=== PATIENT | male | born 1960 | race Caucasian/White ===

== ENCOUNTER 2017-11-01 13:54 | Emergency (ER) | payer MEDICARE ==
[2017-11-01] MEDS ORDERED: predniSONE 20 MG TABLET PO ONE (14:43)
[2017-11-01] MEDS ORDERED: predniSONE 20 MG TABLET ONE (14:47)
--- NOTE | 2017-11-01 14:50 | ERNOTE ---
Head Injury HPI - General Injury to: other - neck pain Time Seen by Provider: 11/01/17 14:18 Source: patient Exam Limitations: no limitations - Immun/Allergies/Home Medications Immunization: IMMUNIZATION HX Immunizations Up to Date Yes History of Influenza Vaccine No Hx Pneumococcal Vaccination No Allergies/Adverse Reactions: Allergies Allergy/AdvReac Type Severity Reaction Status Date / Time iodine Allergy Intermediate Verified 11/01/17 14:05 Home Medications: HOME MEDICATIONS Baclofen 20 mg PO TID 03/25/13 [Last Taken Unknown] Docusate Sodium [Colace] 100 mg PO HS 03/25/13 [Last Taken Unknown] Milnacipran HCl [Savella] 30 mg PO BID 03/25/13 [Last Taken Unknown] Nabumetone 1,000 mg PO DAILY 03/25/13 [Last Taken Unknown] Omeprazole 20 mg PO DAILY 03/25/13 [Last Taken Unknown] Oxycodone HCl/Acetaminophen [Percocet 10-325 mg Tablet] 1 each PO Q4HWA PRN 03/02 [Last Taken Unknown] Pregabalin [Lyrica] 300 mg PO BID 03/25/13 [Last Taken Unknown] Tapentadol HCl [Nucynta ER] 200 mg PO BID 03/25/13 [Last Taken Unknown] Zolpidem Tartrate [Ambien] 10 mg PO HS 03/25/13 [Last Taken Unknown] Carisoprodol [Soma] 350 mg PO QID #30 tablet 11/01/17 [Last Taken Unknown] - History of Present Illness Narrative: Patient has a long-standing history of neck pain, and was diagnosed with spinal stenosis years ago. He has received steroid injections in the neck in the past and they did help, although that was 4 years ago. Patient is recently seen a spine surgeon in [place] and it was suggested that a laminectomy might be the best course of treatment. Patient is struggling with a wants to have surgery are not, and he did not want to wait until his doctor's appointment tomorrow. Occurred: other - chronic neck pain and muscle spasm Severity: moderate Head Injury Location: other - primarily right trapezius muscle and neck Method of Injury: Reports: no apparent injury Loss of Consciousness: Reports: no loss of consciousness Associated Symptoms: Reports: neck pain Review of Systems - Review of Systems Constitutional: Present: See HPI EYE: Present: no symptoms reported ENT: Present: no symptoms reported Respiratory: Present: no symptoms reported Cardiology: Present: no symptoms reported Gastrointestinal/Abdominal: Present: no symptoms reported Genitourinary: Present: no symptoms reported Musculoskeletal: Present: See HPI Skin: Present: no symptoms reported Neurological: Present: no symptoms reported Endocrine: Present: no symptoms reported Hematologic/Lymphatic: Present: no symptoms reported Psych: Present: no symptoms reported - Patient's Past Medical History Patient History - Medical: Chronic Pain, Fibromyalgia, Other - spinal stenosis with chronic neck pain and muscle spasms Patient History - Cardiac/Respiratory: No pertinent hx Patient History - Cancer: No Hx of Cancer Patient History - Other: None - Social History Living Situations: home Psych History: Hx of Depression Smoking Status: Current every day smoker Alcohol Use: none Drug Use: none - Immunizations Immunizations Up to Date: Yes Hx Pneumococcal Vaccination: No History of Influenza Vaccine: No Physical Exam - Physical Exam General Appearance: Present: wd/wn, alert, moderate distress Head Exam: Present: normal inspection Eye Exam: Normal inspection: bilateral, PERRL: bilateral Ears, Nose, Throat: Present: normal ENT inspection, H, normal pharynx Neck: Present: limited range of motion, other - trapezius muscle spasm primarily on the right Respiratory: Present: no respiratory distress, normal breath sounds, no accessory muscle use, chest nontender, lungs clear Cardiovascular/Chest: Present: regular rate, rhythm, no murmur, normal peripheral pulses Gastrointestinal/Abdominal: Present: normal bowel sounds, nontender, nondistended, soft, no organomegaly Rectal Exam: Present: deferred Back Exam: Present: normal inspection, normal range of motion Extremity Exam: Present: normal inspection, non-tender, no edema, normal range of motion Neurological Exam: Present: alert, oriented, normal mood/affect Skin Exam: Present: normal color, warm/dry Lymphatic Exam: Present: no adenopathy ED Progress - Vital Signs Patient's Vital Signs:: I have reviewed the patient's vital signs. Vital Signs: Vital Signs 11/01/17 14:01 Temperature 36.3 C L Pulse Rate 98 Respiratory 16 Rate Blood Pressure 152/98 O2 Sat by Pulse 100 Oximetry - Progress/Reassessment Chief Complaint: Neck Pain/Injury Plan - Plan Plan: I had a discussion with the patient regarding possible treatment options. It is been over 4 years since he has had any steroid injections in the neck, and we discussed his trying another round injections. He has not been on Soma as a muscle relaxer and we will try that for him. He is to see his family doctor tomorrow and they will discuss both the steroid injections and possible surgery for the advancing spinal stenosis. Patient will go to the local medical supply house and try the cervical soft collar that he is asking about. Departure Clinical Impression: Spinal stenosis in cervical region, Muscle spasm - Departure Disposition: Home self-care Condition: Good Instructions: Spinal Stenosis, [id number], Muscle Cramps and Spasms Referrals: J Carlos Edwards DO [Primary Care Provider] - Prescriptions: Carisoprodol [Soma] 350 mg PO QID #30 tablet
[2017-11-01 15:02] VITALS: BP 178/98
== END 2017-11-01 15:04 | disposition home or self-care (01) ==
LOC: ER 13:54
DX: M48.02 Spinal stenosis, cervical region (principal); F17.200 Nicotine dependence, unspecified, uncomplicated; M62.838 Other muscle spasm